=== PATIENT | female | born 1955 | race Hispanic/Latino ===

== ENCOUNTER 2018-01-12 07:23 | Outpatient (CLI) | payer MEDICARE, MEDICAID ==
--- NOTE | 2018-01-12 10:05 | MRI ---
NONCONTRAST BRAIN MRI: Date: 01/12/18 INDICATION: Vertigo. FINDINGS: There is normal sized ventricular system. No acute intracranial mass effect or midline shift. There i s no restricted diffusion or hemorrhagic susceptibility. There are multifocal signal abnormalities of the brain parenchyma, which may be related to mild chronic microvascular ischemic disease; however, there are a few areas of more confluent subcortical white matter signal alteration, which are atypica l in appearance for microvascular ischemic disease, incompletely assessed by noncontrast imaging. IMPRESSION: 1. Nonspecific white matter signal abnormalities, some of which are confluent in morphology, primari ly subcortical in location. Recommend a follow-up contrast enhanced brain MRI to exclude the possibil ity of edema from underlying pathology. These findings are superimposed upon a more consistent appear ance of mild chronic ischemic disease. 2. There is no acute territorial infarction, mass effect, or midline shift. CODE T. POS: [facility]
== END 2018-01-12 07:24 | disposition home or self-care (01) ==
LOC: BICMRI 07:23
PROVIDERS: ATTEND Family Medicine
DX: R42 Dizziness and giddiness (principal); H53.9 Unspecified visual disturbance; R90.82 White matter disease, unspecified
CPT/HCPCS: 70551

== ENCOUNTER 2018-01-23 15:07 | Outpatient (CLI) | payer MEDICARE, MEDICAID | END 2018-01-23 15:08 | disposition home or self-care (01) | LOC: CTENTCT 15:07 | PROVIDERS: ATTEND Otolaryngology Plastic Surgery within the Head & Neck | DX: J32.9 Chronic sinusitis, unspecified (principal) | CPT/HCPCS: 70486 ==

== ENCOUNTER 2021-08-13 16:30 | Outpatient (CLI) | payer MEDICARE | END 2021-08-13 16:31 | disposition home or self-care (01) | LOC: SLEEPLAB 16:30 | PROVIDERS: ATTEND Internal Medicine | DX: G47.33 Obstructive sleep apnea (adult) (pediatric) (principal); I10 Essential (primary) hypertension; R53.83 Other fatigue; R06.83 Snoring; G31.84 Mild cognitive impairment of uncertain or unknown etiology; G47.10 Hypersomnia, unspecified; E66.9 Obesity, unspecified; Z68.23 Body mass index [BMI] 23.0-23.9, adult | CPT/HCPCS: 95811 ==

== ENCOUNTER 2021-08-20 14:21 | Outpatient (CLI) | payer MEDICARE | END 2021-08-20 14:22 | disposition home or self-care (01) | LOC: RAD 14:21 | PROVIDERS: ATTEND Internal Medicine Rheumatology | DX: M25.551 Pain in right hip (principal); M54.50 Low back pain, unspecified; M16.12 Unilateral primary osteoarthritis, left hip; M47.816 Spondylosis without myelopathy or radiculopathy, lumbar region; M47.817 Spondylosis without myelopathy or radiculopathy, lumbosacral region; M46.1 Sacroiliitis, not elsewhere classified; M43.16 Spondylolisthesis, lumbar region; M47.898 Other spondylosis, sacral and sacrococcygeal region | CPT/HCPCS: 72110; 72170 ==

== ENCOUNTER 2021-10-07 11:17 | Outpatient (CLI) | payer MEDICARE | END 2021-10-07 11:18 | disposition home or self-care (01) | LOC: BICMAMMO 11:17 | PROVIDERS: ATTEND Internal Medicine | DX: Z12.31 Encounter for screening mammogram for malignant neoplasm of breast (principal) | CPT/HCPCS: 77063; 77067 ==